=== PATIENT | male | born 1960 | race Two or more races ===

== ENCOUNTER 2017-05-31 07:38 | Emergency (ER) | payer OTHER ==
[2017-05-31 07:45] VITALS: BMI 25.2
--- NOTE | 2017-05-31 08:53 | PDOC ---
History of Present Illness - General Chief Complaint: Pain Stated Complaint: SHOULDER PAIN Time Seen by Provider: 05/31/17 07:57 History Source: Patient Exam Limitations: No Limitations - History of Present Illness Initial Comments: 05/31/17 08:54 The patient is a 56 year old male, with a significant past medical history of HTN, and DMII, who presents to the emergency department with left shoulder and rib pain. He reports sharp, 7/10, focal left sided mid clavicular and midaxillary pain that began 72 hours ago. He denies trauma or heavy lifting and pain is exacerbated with deep inhalation and internal rotation of left shoulder. He states that he wears heavy backpack to work that causes traction on shoulders bilaterally. Pain is improved with OTC advil and he has taken 4 Advil capsules per day since onset of pain. Has had slight mild improvement in pain with OTC analgesia. Denies ice or heat therapy. Today he requests note to miss work. The patient denies chest pain, shortness of breath, headache and dizziness. Denies numbness/tingling in extremities or weakness. Denies fever, chills, nausea, vomit, diarrhea and constipation. Denies dysuria, frequency, urgency and hematuria. Allergies:NKDA Past surgical history:None Social history:Denies h/o alcohol or tobacco use. Denies heavy lifting through employer at [employer]. Timing/Duration: other (72 hours ) Severity: moderate Modifying Factors: improves with: immobilization, medication (Advil QID) Past History - Travel Traveled outside of the country in the last 30 days: No Close contact w/someone who was outside of country & ill: No - Past Medical History Allergies/Adverse Reactions: Allergies Allergy/AdvReac Type Severity Reaction Status Date / Time No Known Allergies Allergy Verified 05/31/17 07:40 Home Medications: Ambulatory Orders Metformin HCl [Glucophage] 1,000 mg PO BID 08/20/12 Metoprolol Tartrate [Lopressor] 100 mg PO DAILY 08/20/12 Sitagliptin Phosphate [Januvia] 100 mg PO HS 08/20/12 Atorvastatin Ca [Lipitor] 10 mg PO HS 05/31/17 Lisinopril [Prinivil] 20 mg PO DAILY 05/31/17 Tamsulosin HCl 0.4 mg PO HS 05/31/17 Diabetes: Yes HTN: Yes Hypercholesterolemia: Yes Kidney Stones: Yes - Psycho/Social/Smoking Cessation Hx Anxiety: No Suicidal Ideation: No Smoking Status: No Smoking History: Never smoked Have you smoked in the past 12 months: No Number of Cigarettes Smoked Daily: 0 Information on smoking cessation initiated: No Hx Alcohol Use: No Drug/Substance Use Hx: No Substance Use Type: None Review of Systems - Review of Systems Able to Perform ROS?: Yes Comments:: 05/31/17 08:51 GENERAL/CONSTITUTIONAL: No fever or chills. No weakness. HEAD, EYES, EARS, NOSE AND THROAT: No change in vision. No ear pain or discharge. No sore throat. CARDIOVASCULAR: No chest pain or shortness of breath RESPIRATORY: No cough, wheezing, or hemoptysis. GASTROINTESTINAL: No nausea, vomiting, diarrhea or constipation. GENITOURINARY: No dysuria, frequency, or change in urination. MUSCULOSKELETAL:+ left sided midclavicular pain. No joint or muscle swelling or pain. No neck or back pain. SKIN: No rash NEUROLOGIC: No headache, vertigo, loss of consciousness, or change in strength/ sensation. ENDOCRINE: No increased thirst. No abnormal weight change HEMATOLOGIC/LYMPHATIC: No anemia, easy bleeding, or history of blood clots. ALLERGIC/IMMUNOLOGIC: No hives or skin allergy *Physical Exam - Vital Signs Last Vital Signs Temp Pulse Resp BP Pulse Ox 98.3 F 60 18 167/100 99 05/31/17 07:42 05/31/17 07:42 05/31/17 07:42 05/31/17 07:42 05/31/17 07:42 - Physical Exam Comments: 05/31/17 09:04 GENERAL: Awake, alert, and fully oriented, in no acute distress HEAD: No signs of trauma, normocephalic, atraumatic EYES: PERRLA, EOMI, sclera anicteric, conjunctiva clear ENT: Auricles normal inspection, hearing grossly normal, nares patent, oropharynx clear without exudates. Moist mucosa NECK: Normal ROM, supple, no lymphadenopathy, JVD, or masses LUNGS: No distress, speaks full sentences, clear to auscultation bilaterally HEART: Regular rate and rhythm, normal S1 and S2, no murmurs, rubs or gallops, peripheral pulses normal and equal bilaterally. ABDOMEN: Soft, nontender, normoactive bowel sounds. No guarding, no rebound. No masses EXTREMITIES: Normal inspection, Normal range of motion, no edema, or bulging. No clubbing or cyanosis. 5/5 Strength in BL UE. Focal reporducible pain at left midaxillary and midclavicular regions. NEUROLOGICAL: Cranial nerves II through XII grossly intact. Normal speech, normal gait, no focal sensorimotor deficits SKIN: Warm, Dry, normal turgor, no rashes or lesions noted. Heart Score/ECG Review #1 ECG reviewed & interpreted by me at: 07:47 General ECG Interpretation: Sinus Rhythm, Normal Rate, Normal Intervals, No acute ischemic changes 05/31/17 09:12 - ECG Intrepretation Rhythm: Regular Rhythm - [place]ridge: Normal - QRS Q Wave Present: No - ECG Impressions Normal ECG: Yes Non-specific ST Elevation: No Ischemic Changes: No Medical Decision Making - Medical Decision Making 05/31/17 09:14 Pt. presents to ED with left shoulder musculoskeletal pain. Based on presentation and physical exam no concern for cardiac or pulmonary etiology. EKG unremarkable. Discharge patient home with instructions to manage pain with heat and OTC analgesia. Provide note to return to work the following day. 05/31/17 09:17 *DC/Admit/Observation/Transfer Diagnosis at time of Disposition: Abn find-musculoskel sys - Discharge Dispostion Disposition: HOME Condition at time of disposition: Stable Admit: No - Post Discharge Activity Work/School Note: Back to Work - Attestations Physician Attestion: 05/31/17 09:17 I, Dr. Marcelino Rick, attest that this document has been prepared under my direction and personally reviewed by me in its entirety. I further attest, that it accurately reflects all work, treatment, procedures and medical decision -making performed by me.
[2017-05-31 09:23] VITALS: BP 133/79; PULSE 61; TEMP 98
--- NOTE | 2017-05-31 10:22 | EKG ---
Test Reason : Blood Pressure : / mmHG Vent. Rate : 062 BPM Atrial Rate : 062 BPM P-R Int : 130 ms QRS Dur : 082 ms QT Int : 398 ms P-R-T Axes : 062 070 065 degrees QTc Int : 403 ms NORMAL SINUS RHYTHM NORMAL ECG WHEN COMPARED WITH ECG OF 20-AUG-2012 12:23, T WAVE VARIATION Confirmed by RENY SERRANO MD ([id number]) on 05/31/2017 10:22:04 AM Referred By: Confirmed By:RENY SERRANO MD
== END 2017-05-31 09:40 | disposition home or self-care (01) ==
LOC: JER 07:38
DX: M25.512 Pain in left shoulder (principal); I10 Essential (primary) hypertension; E11.9 Type 2 diabetes mellitus without complications; Z79.84 Long term (current) use of oral hypoglycemic drugs; E78.00 Pure hypercholesterolemia, unspecified; Z87.442 Personal history of urinary calculi
CPT/HCPCS: 93005; 93010; 99283-25

== ENCOUNTER 2021-09-24 20:30 | Inpatient (IN) | payer OTHER ==
[2021-09-24 20:39] VITALS: BMI 25.4
[2021-09-24] MEDS ORDERED: SODIUM CHLORIDE 0.9% 500 ML INFUS.BAG IV ONE (22:38)
[2021-09-24] MEDS ORDERED: KETOROLAC TROMETHAMINE 30 MG/1 ML VIAL IVPUSH ONE (22:38)
[2021-09-24] MEDS ORDERED: ONDANSETRON 4 MG/2 ML VIAL IVPUSH ONE (22:39)
[2021-09-24] MEDS ORDERED: ONDANSETRON 4 MG/2 ML VIAL ONE (22:45)
[2021-09-24] MEDS ORDERED: KETOROLAC TROMETHAMINE 30 MG/1 ML VIAL ONE (22:45)
[2021-09-24 23:01] LABS: BASO % 0.4 % (0-2.0); EOS % 0.5 % (0-4.5); HEMATOCRIT 34.6 % (35.4-49); LYMPH % 25.8 % (8-40); MCH 29.3 pg (25.7-33.7); MCHC 34.6 g/dl (32.0-35.9); MEAN CELL VOLUME 84.8 fl (80-96); MEAN PLT VOLUME 10.2 fl (7.5-11.1); MONO % 6.8 % (3.8-10.2); NEUT % 66.5 % (42.8-82.8); RBC 4.08 M/mm3 (4.00-5.60); RDW 14.7 % (11.9-15.9); WHITE BLOOD COUNT 10.2 K/mm3 (4.0-10.0)
[2021-09-24 23:03] LABS: URINE APPEARANCE CLEAR; URINE BILIRUBIN NEGATIVE (NEGATIVE); URINE COLOR YELLOW; URINE GLUCOSE (UA) NEGATIVE (NEGATIVE); URINE KETONE NEGATIVE (NEGATIVE); URINE LEUK ESTERASE NEGATIVE (NEGATIVE); URINE NITRITE NEGATIVE (NEGATIVE); URINE PROTEIN NEGATIVE (NEGATIVE); URINE UROBILINOGEN 0.2 mg/dL (0.2-1.0)
[2021-09-24 23:18] LABS: PLATELET COUNT 228 10^3/uL (134-434); PLATELET ESTIMATE ADEQUATE
[2021-09-24 23:26] LABS: BLOOD UREA NITROGEN 20.9 mg/dL (7-18)
[2021-09-24 23:27] LABS: ALBUMIN 3.9 g/dl (3.4-5.0); CALCIUM 9.2 mg/dL (8.5-10.1)
[2021-09-24 23:30] LABS: CREATININE 1.7 mg/dL (0.55-1.3)
[2021-09-24 23:32] LABS: BILIRUBIN,TOTAL 0.7 mg/dL (0.2-1); TOT PROT 7.8 g/dl (6.4-8.2)
[2021-09-25] MEDS ORDERED: morphine SULFATE 4 MG/ML VIAL IVPUSH ONE (03:23)
[2021-09-25] MEDS ORDERED: morphine SULFATE 4 MG/ML VIAL ONE (03:31)
[2021-09-25] MEDS ORDERED: TAMSULOSIN HCL 0.4 MG CAP PO ONE (04:16)
[2021-09-25] MEDS ORDERED: SODIUM CHLORIDE 1,000 ML IV SCH ×3 (04:30→10:39)
[2021-09-25] MEDS ORDERED: TAMSULOSIN HCL 0.4 MG CAP ONE (04:44)
[2021-09-25 05:12] LABS: CALCIUM 8.7 mg/dL (8.5-10.1)
[2021-09-25 05:16] LABS: CREATININE 1.6 mg/dL (0.55-1.3)
[2021-09-25] MEDS ORDERED: morphine SULFATE 4 MG/ML VIAL IM PRN (06:16)
[2021-09-25] MEDS ORDERED: amLODIPine BESYLATE 10 MG TABLET (FP) PO SCH (10:00)
[2021-09-25] MEDS ORDERED: PANTOPRAZOLE 20 MG TABLET PO SCH (10:00)
[2021-09-25] MEDS ORDERED: METOPROLOL TARTRATE 50 MG TABLET (FP) PO SCH (10:00)
[2021-09-25] MEDS ORDERED: LISINOPRIL 20 MG TABLET PO SCH (10:00)
[2021-09-25] MEDS ORDERED: PANTOPRAZOLE 20 MG TABLET PO ONE (11:49)
[2021-09-25] MEDS ORDERED: amLODIPine BESYLATE 5 MG TABLET (FP) ONE (11:49)
[2021-09-25] MEDS ORDERED: METOPROLOL TARTRATE 50 MG TABLET (FP) ONE (11:50)
[2021-09-25 12:36] LABS: BASO % 0.4 % (0-2.0); EOS % 0.2 % (0-4.5); HEMATOCRIT 32.1 % (35.4-49); HEMOGLOBIN 11.2 GM/dL (11.7-16.9); LYMPH % 14.2 % (8-40); MCH 29.6 pg (25.7-33.7); MCHC 34.8 g/dl (32.0-35.9); MEAN CELL VOLUME 85.1 fl (80-96); MEAN PLT VOLUME 9.4 fl (7.5-11.1); MONO % 6.7 % (3.8-10.2); NEUT % 78.5 % (42.8-82.8); PLATELET COUNT 212 10^3/uL (134-434); RBC 3.78 M/mm3 (4.00-5.60); RDW 14.9 % (11.9-15.9); WHITE BLOOD COUNT 7.8 K/mm3 (4.0-10.0)
[2021-09-25 12:43] LABS: INR 1.01 (0.83-1.09); PROTHROMBIN TIME (PATIENT) 11.8 SEC (9.7-13.0)
[2021-09-25 12:46] LABS: ACTIVATED PTT 28.3 SECONDS (25.2-36.5)
[2021-09-25 12:57] LABS: CALCIUM 8.8 mg/dL (8.5-10.1)
[2021-09-25 12:58] LABS: ALBUMIN 3.3 g/dl (3.4-5.0); BLOOD UREA NITROGEN 17.7 mg/dL (7-18); MAGNESIUM 1.6 mg/dL (1.8-2.4)
[2021-09-25 13:00] LABS: URIC ACID 3.7 mg/dL (2.6-7.2)
[2021-09-25 13:01] LABS: CREATININE 1.3 mg/dL (0.55-1.3); PHOSPHOROUS 2.8 mg/dL (2.5-4.9)
[2021-09-25 13:02] LABS: BILIRUBIN,TOTAL 0.9 mg/dL (0.2-1); TOT PROT 6.8 g/dl (6.4-8.2)
[2021-09-25 15:36] VITALS: BP 122/76; PULSE 67; TEMP 98
[2021-09-25] MEDS ORDERED: INSULIN SLIDING SCALE (NOVOLOG) 1 VIAL SQ SCH (16:30)
[2021-09-25] MEDS ORDERED: TAMSULOSIN HCL 0.4 MG CAP PO SCH (22:00)
== END 2021-09-25 18:55 | disposition home or self-care (01) | DRG 694 ==
LOC: JER 20:30 → JERBED 09-25 03:25 → UNDOADMOB 09-25 03:25 → INTOOBSV 09-25 03:25 → JERBED 09-25 04:16 → OBSVTOIN 09-25 13:43 → J7W 09-25 17:36
PROVIDERS: ADMIT Internal Medicine; ATTEND Internal Medicine
DX: N20.0 Calculus of kidney (principal); N17.9 Acute kidney failure, unspecified; N40.0 Benign prostatic hyperplasia without lower urinary tract symptoms; E11.9 Type 2 diabetes mellitus without complications; K21.9 Gastro-esophageal reflux disease without esophagitis; I10 Essential (primary) hypertension; E78.5 Hyperlipidemia, unspecified
CPT/HCPCS: 36415; 74176-TC; 76775-TC; 80048; 80053; 81003; 83735; 84100; 84550; 85025; 85610; 85730; 87086; 93005; 93010; 99285-25; C9803; G0378; U0003; U0005

== ENCOUNTER 2022-03-28 15:30 | Emergency (ER) | payer OTHER ==
[2022-03-28 16:06] VITALS: BP 145/79; PULSE 74; TEMP 98.2; BMI 24.6
[2022-03-28] MEDS ORDERED: LIDOCAINE 5% TOPICAL PATCH TP ONE (17:18)
[2022-03-28] MEDS ORDERED: METHOCARBAMOL 500 MG TABLET PO ONE (17:18)
[2022-03-28] MEDS ORDERED: KETOROLAC TROMETHAMINE 60 MG/2 ML VIAL IM ONE (17:18)
[2022-03-28] MEDS ORDERED: KETOROLAC TROMETHAMINE 30 MG/1 ML VIAL ONE (17:23)
[2022-03-28] MEDS ORDERED: METHOCARBAMOL 500 MG TABLET ONE (17:23)
[2022-03-28] MEDS ORDERED: LIDOCAINE 5% TOPICAL PATCH ONE (17:23)
[2022-03-28] MEDS ORDERED: LIDOCAINE PATCH REMOVAL MC SCH (22:00)
== END 2022-03-28 17:55 | disposition home or self-care (01) ==
LOC: FER 15:30
PROC: 3E0233Z Introduction of Anti-inflammatory into Muscle, Percutaneous Approach (ICD-10-PCS; principal; 2022-03-28)
DX: M54.31 Sciatica, right side (principal)
CPT/HCPCS: 99284-25

== ENCOUNTER 2022-03-31 10:28 | Emergency (ER) | payer OTHER ==
[2022-03-31 10:49] VITALS: BP 148/85; PULSE 71; TEMP 98.2; BMI 24.6
[2022-03-31] MEDS ORDERED: IBUPROFEN 400 MG TABLET (FP) PO ONE ×2 (10:53→10:56)
[2022-03-31 12:02] LABS: PH,URINE 6.5 (5.0-8.0); URINE APPEARANCE CLEAR; URINE BILIRUBIN NEGATIVE (NEGATIVE); URINE COLOR YELLOW; URINE GLUCOSE (UA) 3+ (NEGATIVE); URINE KETONE NEGATIVE (NEGATIVE); URINE LEUK ESTERASE NEGATIVE (NEGATIVE); URINE NITRITE NEGATIVE (NEGATIVE); URINE PROTEIN NEGATIVE (NEGATIVE)
[2022-03-31] MEDS ORDERED: ACETAMINOPHEN 500 MG TABLET (FP) PO ONE (12:49)
[2022-03-31] MEDS ORDERED: LIDOCAINE HCL 5% TOP OINTMENT 50 GM TUBE TP ONE (12:49)
[2022-03-31] MEDS ORDERED: ACETAMINOPHEN 325 MG TABLET (FP) ONE (12:54)
[2022-03-31] MEDS ORDERED: LIDOCAINE 2.5%/PRILOCAINE 2.5% (5 Gram/TUBE) TP ONE (12:54)
[2022-03-31] MEDS ORDERED: LIDOCAINE 5% TOPICAL PATCH ONE (12:55)
[2022-03-31] MEDS ORDERED: LIDOCAINE 5% TOPICAL PATCH TP ONE (12:55)
[2022-03-31] MEDS ORDERED: LIDOCAINE PATCH REMOVAL MC SCH (22:00)
== END 2022-03-31 14:28 | disposition home or self-care (01) ==
LOC: JER 10:28
DX: M54.41 Lumbago with sciatica, right side (principal)
CPT/HCPCS: 76775-TC; 81003; 87086; 93005; 93010; 99285-25

== ENCOUNTER 2024-02-11 16:08 | Emergency (ER) | payer OTHER ==
[2024-02-11 17:37] VITALS: RESP 18; BMI 26.6
[2024-02-11 17:51] LABS: BASO % 0.5 % (0-2.0); EOS % 0.4 % (0-4.5); HEMATOCRIT 36.7 % (35.4-49); HEMOGLOBIN 12.5 GM/dL (11.7-16.9); LYMPH % 15.1 % (8-40); MCH 28.6 pg (25.7-33.7); MCHC 34.1 g/dl (32.0-35.9); MEAN CELL VOLUME 84.1 fl (80-96); MEAN PLT VOLUME 9.6 fl (7.5-11.1); MONO % 7.6 % (3.8-10.2); NEUT % 76.4 % (42.8-82.8); PLATELET COUNT 264 10^3/uL (134-434); RBC 4.37 M/mm3 (4.00-5.60); WHITE BLOOD COUNT 10.1 K/mm3 (4.0-10.0)
[2024-02-11 17:59] LABS: INR 0.99 (0.83-1.09); PROTHROMBIN TIME (PATIENT) 11.5 SEC (9.7-13.0)
[2024-02-11 18:02] LABS: ACTIVATED PTT 26.2 SECONDS (25.2-36.5)
[2024-02-11 18:18] LABS: ALBUMIN 3.9 g/dl (3.4-5.0); BLOOD UREA NITROGEN 16.8 mg/dL (7-18)
[2024-02-11 18:21] LABS: CREATININE 1.8 mg/dL (0.55-1.3)
[2024-02-11 18:22] LABS: BILIRUBIN,TOTAL 0.9 mg/dL (0.2-1); TOT PROT 7.7 g/dl (6.4-8.2)
[2024-02-11 22:00] VITALS: BP 112/67; PULSE 71; TEMP 98.1
== END 2024-02-11 21:59 | disposition home or self-care (01) ==
LOC: JER 16:08
DX: F41.9 Anxiety disorder, unspecified (principal); R06.02 Shortness of breath; R07.2 Precordial pain
CPT/HCPCS: 36415; 71046-TC-FY; 80053; 84484; 85025; 85379; 85610; 85730; 86850; 86900; 86901; 93005; 93010; 99285-25

== ENCOUNTER 2024-02-12 16:29 | Emergency (ER) | payer OTHER ==
[2024-02-12 16:42] VITALS: BP 116/77; PULSE 72; RESP 16; TEMP 98.7; BMI 25.1
[2024-02-12] MEDS ORDERED: ALPRAZolam 1 MG TABLET PO PRN (17:29)
[2024-02-12] MEDS: ALPRAZolam 0.25 MG TABLET PO ONE (18:15)
[2024-02-12] MEDS ORDERED: ALPRAZolam 0.25 MG TABLET ONE (18:21)
== END 2024-02-12 18:20 | disposition home or self-care (01) ==
LOC: JER 16:29
DX: F41.9 Anxiety disorder, unspecified (principal); R07.9 Chest pain, unspecified; R06.02 Shortness of breath
CPT/HCPCS: 99283-25